=== PATIENT | female | born 1935 | race African-American/Black ===

== ENCOUNTER 2019-03-19 23:23 | Emergency (ER) | payer BC, MEDICAID ==
[~2019-03-19] VITALS: Ht 167.6 cm; Wt 81.0 kg
[~2019-03-19 23:23] MED LIST: DONE10TA11 PO; FELO10TA PO; MEMA10TA2 PO
[2019-03-20 00:36] LABS: CLARITY URINE TURBID (CLEAR); COLOR URINE YELLOW (YELLOW); KETONES URINE NEGATIVE (NEGATIVE); LEUKOCYTE ESTERASE URINE TRACE (NEGATIVE); NITRITE URINE NEGATIVE (NEGATIVE); OCCULT BLOOD URINE NEGATIVE (NEGATIVE); PH URINE >=9.0 (4.5-8.0); PROTEIN URINE TRACE (NEGATIVE); SPECIFIC GRAVITY URINE 1.019 (1.005-1.030); UROBILINOGEN URINE 0.2 E.U./dL (0.2-1.0)
[2019-03-20 01:31] LABS: HEMATOCRIT. 36.2 % (36.0-48.0); MEAN CORPUSCULAR HEMOGLOBIN 19.9 pg (28.0-32.0); MEAN CORPUSCULAR VOLUME 65.6 fL (81.0-99.0); MEAN PLATELET VOLUME 7.3 fl (7.4-10.4); PLATELET 362 x1000/uL (130-400); RED BLOOD CELL COUNT 5.52 mill/uL (4.2-5.4); RED CELL DISTRIBUTION WIDTH 19.2 % (11.6-14.6)
[2019-03-20 01:37] LABS: CHLORIDE 106 mEq/L (98-107)
[2019-03-20 01:38] LABS: PROTHROMBIN TIME 10.2 sec (9.6-11.0)
[2019-03-20] MEDS ORDERED: SODIUM CHLORIDE 0.9% 1000ML BAG (SEPSIS BOLUS) IV ONE (02:00)
[2019-03-20] MEDS ORDERED: CEFTRIAXONE 1 G PREMIX 50 ML IV ONE (02:00)
[2019-03-20 04:12] LABS: PLATELET ESTIMATE NORMAL
[2019-03-20 07:59] VITALS: BP 125/82
== END 2019-03-20 08:00 | disposition short-term general hospital (02) ==
LOC: ER 23:23 → CANBEDREQ 03-20 07:36 → ER 03-20 08:00
DX: A41.9 Sepsis, unspecified organism (principal); G30.9 Alzheimer's disease, unspecified; F02.80 Dementia in other diseases classified elsewhere, unspecified severity, without behavioral disturbance, psychotic disturbance, mood disturbance, and anxiety; I10 Essential (primary) hypertension; Z96.659 Presence of unspecified artificial knee joint
CPT/HCPCS: 36415; 70450; 71045; 74176; 80053; 81003; 82962; 83605; 83690; 84484; 85025; 85610; 87040; 87086; 93005; 96361; 96374; 99291; J0696; J7030

== ENCOUNTER 2019-08-30 09:34 | Inpatient (IN) | payer BC, MEDICAID ==
[~2019-08-30] VITALS: Ht 165.1 cm; Wt 54.4 kg
[~2019-08-30 09:34] MED LIST changes: -DONE10TA11 PO; -FELO10TA PO; +FELO10TA45 PO; -MEMA10TA2 PO; +OMEP20TA2 MT
[2019-08-30] MEDS ORDERED: SODIUM CHLORIDE 0.9% 1,000 ML IV ONE (09:52)
[2019-08-30] MEDS ORDERED: PANTOPRAZOLE SODIUM 40 MG/VIAL IV STA (09:52)
[2019-08-30 10:20] LABS: BASOPHILS % 0.4 % (0.0-2.0); HEMATOCRIT. 46.4 % (36.0-48.0); HEMOGLOBIN. 15.4 g/dL (12.0-16.0); LYMPHOCYTES % 7.3 % (20.0-50.0); MEAN CORPUSCULAR VOLUME 81.6 fL (81.0-99.0); MEAN PLATELET VOLUME 8.6 fl (7.4-10.4); MONOCYTES % 4.1 % (2.0-8.0); NEUTROPHILS % 88.2 % (40.0-76.0); PLATELET 297 x1000/uL (130-400); RED BLOOD CELL COUNT 5.69 mill/uL (4.2-5.4); RED CELL DISTRIBUTION WIDTH 19.6 % (11.6-14.6)
[2019-08-30 10:28] LABS: PROTHROMBIN TIME 10.4 sec (9.6-11.0)
[2019-08-30 10:30] LABS: CHLORIDE 108 mEq/L (98-107)
[2019-08-30 15:53] LABS: BASOPHILS % 0.1 % (0.0-2.0); HEMATOCRIT. 49.2 % (36.0-48.0); HEMOGLOBIN. 15.8 g/dL (12.0-16.0); LYMPHOCYTES % 7.7 % (20.0-50.0); MEAN CORPUSCULAR HEMOGLOBIN 26.7 pg (28.0-32.0); MEAN CORPUSCULAR VOLUME 83.2 fL (81.0-99.0); MEAN PLATELET VOLUME 8.6 fl (7.4-10.4); MONOCYTES % 5.5 % (2.0-8.0); NEUTROPHILS % 86.7 % (40.0-76.0); PLATELET 212 x1000/uL (130-400); RED BLOOD CELL COUNT 5.91 mill/uL (4.2-5.4); RED CELL DISTRIBUTION WIDTH 20.3 % (11.6-14.6)
[2019-08-30] MEDS ORDERED: IPRATROPIUM/ALBUTEROL 0.5-3(2.5)MG/3ML NEB HHN PRN (17:00)
[2019-08-30] MEDS ORDERED: ONDANSETRON HCL 4MG/2ML INJ IV PRN (17:00)
[2019-08-30] MEDS ORDERED: ACETAMINOPHEN 325MG TABLET PO PRN (17:00)
[2019-08-30] MEDS: SODIUM CHLORIDE 0.45% 1,000 ML IV SCH (18:19)
[2019-08-30 23:00] VITALS: BP 112/67
[2019-08-31 04:34] VITALS: BP 114/65
[2019-08-31] MEDS: SODIUM CHLORIDE 0.45% 1,000 ML IV SCH ×2 (06:31→21:13)
[2019-08-31 07:36] LABS: BASOPHILS % 0.1 % (0.0-2.0); EOSINOPHILS % 0.1 % (0.0-5.0); HEMATOCRIT. 40.5 % (36.0-48.0); LYMPHOCYTES % 8.1 % (20.0-50.0); MEAN CORPUSCULAR HEMOGLOBIN 26.6 pg (28.0-32.0); MEAN CORPUSCULAR VOLUME 82.5 fL (81.0-99.0); MONOCYTES % 5.5 % (2.0-8.0); NEUTROPHILS % 86.2 % (40.0-76.0); PLATELET 220 x1000/uL (130-400); RED BLOOD CELL COUNT 4.91 mill/uL (4.2-5.4); RED CELL DISTRIBUTION WIDTH 19.7 % (11.6-14.6)
[2019-08-31 07:37] LABS: CHLORIDE 114 mEq/L (98-107)
[2019-08-31 08:00] VITALS: BP 134/77
[2019-08-31] MEDS: PANTOPRAZOLE SODIUM 40 MG/VIAL IV SCH (09:04)
[2019-08-31] MEDS ORDERED: BISACODYL 10MG SUPP PR NR (10:25)
[2019-08-31] MEDS ORDERED: LACTULOSE 20G/30ML UDC PO NR (10:25)
[2019-08-31] MEDS: CEFTRIAXONE 1 G PREMIX 50 ML IV SCH (11:08)
[2019-08-31] MEDS: AZITHROMYCIN 500 MG TABLET PO SCH (11:08)
[2019-08-31 12:11] VITALS: BP 121/48
[2019-08-31 16:00] VITALS: BP 123/60
[2019-08-31] MEDS ORDERED: LACTULOSE 20G/30ML UDC PO PRN (17:45)
[2019-08-31] MEDS ORDERED: HYDROCODONE/ACETAMINOPHEN 5/325MG TABLET PO PRN (17:45)
[2019-08-31] MEDS ORDERED: MORPHINE SULFATE 2 MG/ML CPJ (NOT FOR IM USE) IV PRN (17:45)
[2019-08-31] MEDS: DOCUSATE SODIUM 100MG CAPSULE PO SCH (18:35)
[2019-08-31 20:48] VITALS: BP 134/62
[2019-09-01 00:39] VITALS: BP 129/66
[2019-09-01 04:00] VITALS: BP 131/74
[2019-09-01 07:36] LABS: HEMOGLOBIN 10.7 g/dL (12.0-16.0); MEAN CORPUSCULAR HEMOGLOBIN 26.9 pg (28.0-32.0); MEAN CORPUSCULAR VOLUME 83.1 fL (81.0-99.0); PLATELET 177 x1000/uL (130-400); RED BLOOD CELL COUNT 3.98 mill/uL (4.2-5.4); RED CELL DISTRIBUTION WIDTH 19.5 % (11.6-14.6)
[2019-09-01 07:49] LABS: CHLORIDE 111 mEq/L (98-107)
[2019-09-01 08:00] VITALS: BP 130/55
[2019-09-01] MEDS: DOCUSATE SODIUM 100MG CAPSULE PO SCH (09:37)
[2019-09-01] MEDS: AZITHROMYCIN 500 MG TABLET PO SCH (09:37)
[2019-09-01] MEDS: PANTOPRAZOLE SODIUM 40 MG/VIAL IV SCH ×2 (09:37→17:46)
[2019-09-01] MEDS: SODIUM CHLORIDE 0.45% 1,000 ML IV SCH (09:38)
[2019-09-01 12:00] VITALS: BP 133/53
[2019-09-01] MEDS: CEFTRIAXONE 1 G PREMIX 50 ML IV SCH (13:32)
[2019-09-01 16:00] VITALS: BP 135/60
[2019-09-01] MEDS ORDERED: BISACODYL 10MG SUPP PR PRN (16:30)
[2019-09-01] MEDS ORDERED: DIPHENHYDRAMINE 50MG/ML VIAL IV PRN (16:30)
[2019-09-01 17:42] LABS: BG BASE EXCESS 4.7 mmol/L (-2.0-2.0); BG CARBOXYHEMOGLOBIN 0.2 % (0.5-1.5); BG DEOXYHEMOGLOBIN 6.9 % (0.0-5.0); BG FRACTION INSPIRED OXYGEN 21; BG HCO3 ACT 29.1 mmol/L (22.0-26.0); BG METHEMOGLOBIN 0.6 % (0.0-1.5); BG OXYHEMOGLOBIN 92.3 % (94.0-97.0); BG PCO2 42.5 mmHg (35.0-45.0); BG PH 7.453 (7.350-7.450); BG PO2 72.3 mmHg (75.0-100.0); BG SAMPLE SITE RIGHT RADIAL; BG TOTAL HEMOGLOBIN 11.6 g/dL (12.0-18.0); BG VENT MODE ROOM AIR
[2019-09-01] MEDS: PIPERACILLIN/TAZOBACTAM 3.375 G in DEXT 5% WATER 100 ML IV SCH ×2 (19:04→23:42)
[2019-09-01] MEDS: IPRATROPIUM/ALBUTEROL 0.5-3(2.5)MG/3ML NEB HHN SCH (20:01)
[2019-09-01 20:49] VITALS: BP 152/63
[2019-09-02] VITALS (7 sets, daily range): BP systolic 98–167; BP diastolic 42–78
[2019-09-02] MEDS: SODIUM CHLORIDE 0.45% 1,000 ML IV SCH ×2 (00:25→12:45)
[2019-09-02] MEDS: IPRATROPIUM/ALBUTEROL 0.5-3(2.5)MG/3ML NEB HHN SCH ×3 (01:58→20:09)
[2019-09-02] MEDS: PIPERACILLIN/TAZOBACTAM 3.375 G in DEXT 5% WATER 100 ML IV SCH ×3 (05:42→17:49)
[2019-09-02 07:50] LABS: CHLORIDE 108 mEq/L (98-107)
[2019-09-02 08:02] LABS: BASOPHILS % 0.2 % (0.0-2.0); EOSINOPHILS % 3.4 % (0.0-5.0); HEMATOCRIT. 32.3 % (36.0-48.0); HEMOGLOBIN. 10.6 g/dL (12.0-16.0); LYMPHOCYTES % 8.4 % (20.0-50.0); MEAN CORPUSCULAR HEMOGLOBIN 27.2 pg (28.0-32.0); MEAN CORPUSCULAR VOLUME 82.6 fL (81.0-99.0); MONOCYTES % 8.7 % (2.0-8.0); NEUTROPHILS % 79.3 % (40.0-76.0); PLATELET 222 x1000/uL (130-400); RED BLOOD CELL COUNT 3.91 mill/uL (4.2-5.4); RED CELL DISTRIBUTION WIDTH 18.9 % (11.6-14.6)
[2019-09-02] MEDS: PANTOPRAZOLE SODIUM 40 MG/VIAL IV SCH ×2 (09:43→17:00)
[2019-09-02] MEDS: POTASSIUM CHLORIDE INJ 40 MEQ in DEXT 5% WATER 250 ML IV SCH ×2 (12:22→17:49)
[2019-09-02] MEDS ORDERED: FUROSEMIDE 40MG/4ML VIAL IVP SCH (12:30)
[2019-09-02] MEDS: BISACODYL 10MG SUPP PR SCH (17:45)
[2019-09-02] MEDS ORDERED: MINERAL OIL ENEMA 133ML PR NR (21:00)
[2019-09-03] VITALS: BP 112/64
[2019-09-03] MEDS: PIPERACILLIN/TAZOBACTAM 3.375 G in DEXT 5% WATER 100 ML IV SCH ×4 (01:08→17:53)
[2019-09-03] MEDS: IPRATROPIUM/ALBUTEROL 0.5-3(2.5)MG/3ML NEB HHN SCH ×3 (01:20→21:20)
[2019-09-03 04:00] VITALS: BP 109/63
[2019-09-03 04:48] VITALS: BP 109/63
[2019-09-03] MEDS ORDERED: LIDOCAINE HCL 1% 20ML VIAL (Pyxis) INJ ONE ×2 (07:14→13:45)
[2019-09-03] MEDS ORDERED: SODIUM BICARBONATE 4% (2.4MEQ) 5ML VIAL IV ONE ×2 (07:14→13:45)
[2019-09-03 08:00] VITALS: BP 111/51
[2019-09-03] MEDS: BISACODYL 10MG SUPP PR SCH ×2 (09:00→17:53)
[2019-09-03] MEDS: PANTOPRAZOLE SODIUM 40 MG/VIAL IV SCH ×2 (09:02→16:29)
[2019-09-03] MEDS: SODIUM CHLORIDE 0.45% 1,000 ML IV SCH (09:02)
[2019-09-03] MEDS ORDERED: SORBITOL 70% SOLN 30ML PO SCH (12:15)
[2019-09-03 16:00] VITALS: BP 119/44
[2019-09-03 18:37] LABS: BASOPHILS % 0.4 % (0.0-2.0); EOSINOPHILS % 5.6 % (0.0-5.0); HEMATOCRIT. 31.5 % (36.0-48.0); HEMOGLOBIN. 10.7 g/dL (12.0-16.0); LYMPHOCYTES % 10.7 % (20.0-50.0); MEAN CORPUSCULAR HEMOGLOBIN 27.7 pg (28.0-32.0); MEAN CORPUSCULAR VOLUME 81.4 fL (81.0-99.0); MEAN PLATELET VOLUME 8.4 fl (7.4-10.4); MONOCYTES % 9.1 % (2.0-8.0); NEUTROPHILS % 74.2 % (40.0-76.0); PLATELET 256 x1000/uL (130-400); RED BLOOD CELL COUNT 3.87 mill/uL (4.2-5.4); RED CELL DISTRIBUTION WIDTH 18.1 % (11.6-14.6)
[2019-09-03 18:44] LABS: CHLORIDE 109 mEq/L (98-107)
[2019-09-03 20:00] VITALS: BP 118/72
[2019-09-03] MEDS ORDERED: BISACODYL 10MG SUPP PR SCH (21:15)
[2019-09-03] MEDS ORDERED: POTASSIUM CHLORIDE INJ 40 MEQ in DEXT 5% WATER 250 ML IV NR (22:00)
[2019-09-03] MEDS ORDERED: MINERAL OIL ENEMA 133ML PR NR (22:00)
[2019-09-04] VITALS: BP 102/47
[2019-09-04] MEDS: PIPERACILLIN/TAZOBACTAM 3.375 G in DEXT 5% WATER 100 ML IV SCH ×4 (00:04→19:05)
[2019-09-04 04:00] VITALS: BP 111/59
[2019-09-04 08:01] VITALS: BP 106/64
[2019-09-04] MEDS: PANTOPRAZOLE SODIUM 40 MG/VIAL IV SCH ×2 (09:33→17:16)
[2019-09-04] MEDS: BISACODYL 10MG SUPP PR SCH (09:35)
[2019-09-04] MEDS: IPRATROPIUM/ALBUTEROL 0.5-3(2.5)MG/3ML NEB HHN SCH ×3 (09:40→20:41)
[2019-09-04 11:58] VITALS: BP 126/63
[2019-09-04 16:07] VITALS: BP 118/56
[2019-09-04 20:00] VITALS: BP 96/60
[2019-09-04] MEDS: LACTULOSE 20G/30ML UDC PO SCH (22:00)
[2019-09-05] VITALS: BP 118/67
[2019-09-05] MEDS: PIPERACILLIN/TAZOBACTAM 3.375 G in DEXT 5% WATER 100 ML IV SCH ×4 (00:13→17:13)
[2019-09-05 00:42] VITALS: BP 118/67
[2019-09-05] MEDS: IPRATROPIUM/ALBUTEROL 0.5-3(2.5)MG/3ML NEB HHN SCH ×5 (02:36→20:28)
[2019-09-05 04:00] VITALS: BP 111/73
[2019-09-05] MEDS: LACTULOSE 20G/30ML UDC PO SCH ×3 (05:13→22:00)
[2019-09-05 08:00] VITALS: BP 107/72
[2019-09-05] MEDS: PANTOPRAZOLE SODIUM 40 MG/VIAL IV SCH ×2 (08:52→17:13)
[2019-09-05] MEDS: BISACODYL 10MG SUPP PR SCH (10:29)
[2019-09-05 12:00] VITALS: BP 148/72
[2019-09-05 20:39] VITALS: BP 167/52
[2019-09-06 00:28] VITALS: BP 117/57
[2019-09-06] MEDS: PIPERACILLIN/TAZOBACTAM 3.375 G in DEXT 5% WATER 100 ML IV SCH ×5 (01:23→23:57)
[2019-09-06] MEDS: IPRATROPIUM/ALBUTEROL 0.5-3(2.5)MG/3ML NEB HHN SCH ×4 (02:15→19:58)
[2019-09-06 04:00] VITALS: BP 122/63
[2019-09-06] MEDS: LACTULOSE 20G/30ML UDC PO SCH ×3 (05:35→21:52)
[2019-09-06 06:16] LABS: BASOPHILS % 0.6 % (0.0-2.0); HEMATOCRIT. 28.3 % (36.0-48.0); HEMOGLOBIN. 9.6 g/dL (12.0-16.0); LYMPHOCYTES % 19.5 % (20.0-50.0); MEAN CORPUSCULAR HEMOGLOBIN 27.6 pg (28.0-32.0); MEAN CORPUSCULAR VOLUME 81.2 fL (81.0-99.0); MEAN PLATELET VOLUME 7.9 fl (7.4-10.4); MONOCYTES % 13.6 % (2.0-8.0); NEUTROPHILS % 57.3 % (40.0-76.0); PLATELET 295 x1000/uL (130-400); RED BLOOD CELL COUNT 3.49 mill/uL (4.2-5.4); RED CELL DISTRIBUTION WIDTH 18.4 % (11.6-14.6)
[2019-09-06 06:36] LABS: CHLORIDE 105 mEq/L (98-107)
[2019-09-06 08:00] VITALS: BP 116/85
[2019-09-06] MEDS: BISACODYL 10MG SUPP PR SCH (09:00)
[2019-09-06] MEDS: PANTOPRAZOLE SODIUM 40 MG/VIAL IV SCH ×2 (09:42→17:39)
[2019-09-06 12:00] VITALS: BP 133/46
[2019-09-06] MEDS ORDERED: POTASSIUM CHLORIDE 20MEQ TABLET SR PO NR (13:15)
[2019-09-06 16:00] VITALS: BP 130/47
[2019-09-06 20:19] VITALS: BP 151/49
[2019-09-07 00:06] VITALS: BP 123/47
[2019-09-07] MEDS: IPRATROPIUM/ALBUTEROL 0.5-3(2.5)MG/3ML NEB HHN SCH ×4 (01:59→19:59)
[2019-09-07 04:00] VITALS: BP 109/90
[2019-09-07] MEDS: PIPERACILLIN/TAZOBACTAM 3.375 G in DEXT 5% WATER 100 ML IV SCH ×3 (05:28→18:13)
[2019-09-07] MEDS: LACTULOSE 20G/30ML UDC PO SCH ×2 (05:29→13:05)
[2019-09-07 07:24] LABS: BASOPHILS % 0.6 % (0.0-2.0); EOSINOPHILS % 6.1 % (0.0-5.0); HEMATOCRIT. 31.1 % (36.0-48.0); HEMOGLOBIN. 10.5 g/dL (12.0-16.0); LYMPHOCYTES % 17.2 % (20.0-50.0); MEAN CORPUSCULAR HEMOGLOBIN 27.8 pg (28.0-32.0); MEAN CORPUSCULAR VOLUME 82.3 fL (81.0-99.0); MEAN PLATELET VOLUME 7.7 fl (7.4-10.4); MONOCYTES % 7.9 % (2.0-8.0); NEUTROPHILS % 68.2 % (40.0-76.0); PLATELET 325 x1000/uL (130-400); RED BLOOD CELL COUNT 3.78 mill/uL (4.2-5.4); RED CELL DISTRIBUTION WIDTH 18.3 % (11.6-14.6)
[2019-09-07 07:31] LABS: CHLORIDE 109 mEq/L (98-107)
[2019-09-07 08:00] VITALS: BP 149/52
[2019-09-07] MEDS ORDERED: POTASSIUM CHLORIDE INJ 50 MEQ in DEXT 5% WATER 500 ML IV ONE (09:00)
[2019-09-07] MEDS: BISACODYL 10MG SUPP PR SCH (09:00)
[2019-09-07] MEDS: PANTOPRAZOLE SODIUM 40 MG/VIAL IV SCH ×2 (10:05→18:13)
[2019-09-07 12:00] VITALS: BP 134/68
[2019-09-07] MEDS ORDERED: MORPHINE SULFATE 2 MG/ML CPJ (NOT FOR IM USE) IV PRN (15:45)
[2019-09-07] MEDS ORDERED: LORAZEPAM 2MG/ML CPJ IV PRN (15:45)
[2019-09-07 16:00] VITALS: BP 117/64
[2019-09-07 18:17] LABS: CHLORIDE 108 mEq/L (98-107)
[2019-09-07 20:45] VITALS: BP 96/46
[2019-09-08 00:33] VITALS: BP 96/49
[2019-09-08] MEDS: PIPERACILLIN/TAZOBACTAM 3.375 G in DEXT 5% WATER 100 ML IV SCH ×3 (00:44→12:42)
[2019-09-08] MEDS: IPRATROPIUM/ALBUTEROL 0.5-3(2.5)MG/3ML NEB HHN SCH (01:23)
[2019-09-08 04:41] VITALS: BP 117/84
[2019-09-08 08:00] VITALS: BP 128/78
[2019-09-08 09:11] LABS: HEMATOCRIT 30.4 % (36.0-48.0); MEAN CORPUSCULAR HEMOGLOBIN 27.1 pg (28.0-32.0); MEAN CORPUSCULAR VOLUME 82.2 fL (81.0-99.0); PLATELET 352 x1000/uL (130-400); RED CELL DISTRIBUTION WIDTH 18.5 % (11.6-14.6)
[2019-09-08 09:20] LABS: CHLORIDE 108 mEq/L (98-107)
[2019-09-08] MEDS: PANTOPRAZOLE SODIUM 40 MG/VIAL IV SCH ×2 (09:22→17:00)
[2019-09-08] MEDS: BISACODYL 10MG SUPP PR SCH (09:34)
[2019-09-08 12:08] VITALS: BP 142/63
[2019-09-08] MEDS ORDERED: DILTIAZEM HCL 30MG TABLET PO SCH (14:00)
[2019-09-08 16:00] VITALS: BP 126/57
[2019-09-08 20:00] VITALS: BP 134/97
== END 2019-09-08 20:40 | disposition hospice, home (50) | DRG 177 ==
LOC: ER 09:34 → 6WST 12:51 → EDBEDREQSVC 13:12 → EDBEDREQ 13:12 → EDBEDREQTM 13:12 → ENRESERV 21:31 → 6WST 08-31 00:01
PROVIDERS: ADMIT Ophthalmology; ATTEND Internal Medicine
PROC: 02HV33Z Insertion of Infusion Device into Superior Vena Cava, Percutaneous Approach (ICD-10-PCS; principal; 2019-09-03)
PROC: B5181ZA Fluoroscopy of Superior Vena Cava using Low Osmolar Contrast, Guidance (ICD-10-PCS; 2019-09-03)
PROC: B548ZZA Ultrasonography of Superior Vena Cava, Guidance (ICD-10-PCS; 2019-09-03)
DX: J69.0 Pneumonitis due to inhalation of food and vomit (principal); G92 Toxic encephalopathy; E72.20 Disorder of urea cycle metabolism, unspecified; G91.9 Hydrocephalus, unspecified; K92.0 Hematemesis; E44.1 Mild protein-calorie malnutrition; I10 Essential (primary) hypertension; K44.9 Diaphragmatic hernia without obstruction or gangrene; K56.41 Fecal impaction; Z96.653 Presence of artificial knee joint, bilateral; F02.80 Dementia in other diseases classified elsewhere, unspecified severity, without behavioral disturbance, psychotic disturbance, mood disturbance, and anxiety; K57.90 Diverticulosis of intestine, part unspecified, without perforation or abscess without bleeding; G30.9 Alzheimer's disease, unspecified; C50.912 Malignant neoplasm of unspecified site of left female breast; E87.6 Hypokalemia; J44.9 Chronic obstructive pulmonary disease, unspecified; D50.9 Iron deficiency anemia, unspecified; R13.10 Dysphagia, unspecified; R47.02 Dysphasia; R62.7 Adult failure to thrive; D72.829 Elevated white blood cell count, unspecified; Z90.13 Acquired absence of bilateral breasts and nipples; Z85.3 Personal history of malignant neoplasm of breast; Z68.20 Body mass index [BMI] 20.0-20.9, adult; Z74.01 Bed confinement status; Z87.19 Personal history of other diseases of the digestive system; Z79.899 Other long term (current) drug therapy
CPT/HCPCS: 36415; 36573; 36600; 70551; 71045; 74018; 74176; 76937; 80048; 80053; 82140; 82270; 82375; 82805; 83735; 85025; 85027; 86850; 86900; 92610; 93005; 93306; 94640; 97161; 99285; C1725; C9113; J0696; J2543; J3480; J3490; J7030; J7060

== ENCOUNTER 2019-11-16 20:26 | Inpatient (IN) | payer BC, MEDICAID ==
[~2019-11-16] VITALS: Ht 162.6 cm; Wt 57.2 kg
[2019-11-16 22:29] LABS: CLARITY URINE TURBID (CLEAR); COLOR URINE DARK YELLOW (YELLOW); KETONES URINE TRACE (NEGATIVE); LEUKOCYTE ESTERASE URINE 1+ (NEGATIVE); NITRITE URINE NEGATIVE (NEGATIVE); OCCULT BLOOD URINE 2+ (NEGATIVE); PROTEIN URINE TRACE (NEGATIVE); SPECIFIC GRAVITY URINE 1.027 (1.005-1.030)
[2019-11-17 00:47] LABS: CHLORIDE 108 mEq/L (98-107)
[2019-11-17 01:09] LABS: PROTHROMBIN TIME 10.7 sec (9.6-11.0)
[2019-11-17] MEDS ORDERED: LEVOFLOXACIN 750MG PREMIX 150 ML IV ONE (01:30)
[2019-11-17 04:30] VITALS: BP 112/66
[2019-11-17 05:00] VITALS: BP 120/68
[2019-11-17] MEDS ORDERED: PIPERACILLIN/TAZOBACTAM 3.375 G/VIAL IV SCH (06:00)
[2019-11-17] MEDS ORDERED: AZITHROMYCIN 500 MG in DEXT 5% WATER 250 ML IV SCH (07:00)
[2019-11-17 08:00] VITALS: BP 140/55
[2019-11-17] MEDS: PIPERACILLIN/TAZOBACTAM 3.375 G in DEXT 5% WATER 100 ML IV SCH ×3 (08:34→19:06)
[2019-11-17] MEDS: DEXT 5%/0.45% NACL KCL 20MEQ/L 1,000 ML IV SCH ×3 (08:34→19:06)
[2019-11-17] MEDS: PANTOPRAZOLE SODIUM 40 MG/VIAL IV SCH (08:35)
[2019-11-17] MEDS ORDERED: HEPARIN 5000 UNITS/ML VIAL SUBCUT SCH (09:00)
[2019-11-17 09:07] LABS: BG BASE EXCESS -0.1 mmol/L (-2.0-2.0); BG CARBOXYHEMOGLOBIN 0.7 % (0.5-1.5); BG DEOXYHEMOGLOBIN 10.8 % (0.0-5.0); BG FRACTION INSPIRED OXYGEN 21; BG HCO3 ACT 23.9 mmol/L (22.0-26.0); BG METHEMOGLOBIN 0.3 % (0.0-1.5); BG OXYGEN SATURATION 89.1 % (92.0-98.5); BG OXYHEMOGLOBIN 88.2 % (94.0-97.0); BG PCO2 37.3 mmHg (35.0-45.0); BG PH 7.425 (7.350-7.450); BG PO2 54.8 mmHg (75.0-100.0); BG SAMPLE SITE RIGHT RADIAL; BG TOTAL HEMOGLOBIN 15.4 g/dL (12.0-18.0); BG VENT MODE ROOM AIR
[2019-11-17 09:44] LABS: HEMATOCRIT. 46.5 % (36.0-48.0); HEMOGLOBIN. 15.3 g/dL (12.0-16.0); MEAN CORPUSCULAR HEMOGLOBIN 29.7 pg (28.0-32.0); MEAN CORPUSCULAR VOLUME 90.2 fL (81.0-99.0); MEAN PLATELET VOLUME 9.1 fl (7.4-10.4); PLATELET 183 x1000/uL (130-400); RED BLOOD CELL COUNT 5.15 mill/uL (4.2-5.4); RED CELL DISTRIBUTION WIDTH 15.6 % (11.6-14.6)
[2019-11-17 09:47] LABS: CHLORIDE 109 mEq/L (98-107)
[2019-11-17 12:00] VITALS: BP 101/62
[2019-11-17] MEDS ORDERED: DIPHENHYDRAMINE 50MG/ML VIAL IV PRN (13:45)
[2019-11-17] MEDS ORDERED: LACTULOSE 20G/30ML UDC PO PRN (13:45)
[2019-11-17] MEDS ORDERED: IPRATROPIUM/ALBUTEROL 0.5-3(2.5)MG/3ML NEB HHN PRN (13:45)
[2019-11-17] MEDS ORDERED: ACETAMINOPHEN 650MG SUPP PR PRN (13:45)
[2019-11-17 14:02] LABS: PLATELET ESTIMATE NORMAL
[2019-11-17 16:05] VITALS: BP 137/75
[2019-11-17] MEDS ORDERED: VANCOMYCIN 750 MG PREMIX 150 ML IV SCH (17:00)
[2019-11-17 17:44] LABS: HEMOGLOBIN 13.6 g/dL (12.0-16.0)
[2019-11-17 18:36] LABS: TOTAL IRON BINDING CAPACITY 428 ug/dL (250-450)
[2019-11-17 20:00] VITALS: BP 116/59
[2019-11-18] VITALS: BP 116/61
[2019-11-18 04:00] VITALS: BP 114/49
[2019-11-18] MEDS: PIPERACILLIN/TAZOBACTAM 3.375 G in DEXT 5% WATER 100 ML IV SCH ×3 (06:09→22:23)
[2019-11-18 06:31] LABS: CHLORIDE 109 mEq/L (98-107)
[2019-11-18 06:36] LABS: BASOPHILS % 0.2 % (0.0-2.0); HEMATOCRIT. 36.7 % (36.0-48.0); MEAN CORPUSCULAR HEMOGLOBIN 29.2 pg (28.0-32.0); MEAN CORPUSCULAR VOLUME 89.5 fL (81.0-99.0); MEAN PLATELET VOLUME 9.4 fl (7.4-10.4); MONOCYTES % 1.9 % (2.0-8.0); NEUTROPHILS % 87.9 % (40.0-76.0); PLATELET 161 x1000/uL (130-400); RED CELL DISTRIBUTION WIDTH 15.3 % (11.6-14.6)
[2019-11-18 07:50] LABS: BG CARBOXYHEMOGLOBIN 0.3 % (0.5-1.5); BG DEOXYHEMOGLOBIN 4.7 % (0.0-5.0); BG FRACTION INSPIRED OXYGEN 32; BG HCO3 ACT 24.2 mmol/L (22.0-26.0); BG METHEMOGLOBIN 0.2 % (0.0-1.5); BG OXYGEN SATURATION 95.3 % (92.0-98.5); BG OXYHEMOGLOBIN 94.8 % (94.0-97.0); BG PCO2 38.2 mmHg (35.0-45.0); BG PO2 74.7 mmHg (75.0-100.0); BG SAMPLE SITE RIGHT BRACHIAL; BG TOTAL HEMOGLOBIN 13.4 g/dL (12.0-18.0); BG VENT MODE NASAL CANNULA
[2019-11-18 08:00] VITALS: BP 108/54
[2019-11-18] MEDS: PANTOPRAZOLE SODIUM 40 MG/VIAL IV SCH (08:51)
[2019-11-18] MEDS: DEXT 5%/0.45% NACL KCL 20MEQ/L 1,000 ML IV SCH ×2 (11:47→22:23)
[2019-11-18 12:00] VITALS: BP 129/67
[2019-11-18 16:00] VITALS: BP 131/65
[2019-11-18 20:00] VITALS: BP 113/55
[2019-11-19 04:00] VITALS: BP 132/67
[2019-11-19] MEDS: PIPERACILLIN/TAZOBACTAM 3.375 G in DEXT 5% WATER 100 ML IV SCH ×3 (06:22→20:14)
[2019-11-19 07:56] VITALS: BP 129/58
[2019-11-19] MEDS ORDERED: CEFAZOLIN 1000MG PREMIX 50 ML IV SCH (10:00)
[2019-11-19] MEDS: PANTOPRAZOLE SODIUM 40 MG/VIAL IV SCH (10:04)
[2019-11-19] MEDS: DEXT 5%/0.45% NACL KCL 20MEQ/L 1,000 ML IV SCH ×2 (10:05→19:00)
[2019-11-19 12:00] VITALS: BP 126/89
[2019-11-19 12:50] VITALS: BP 126/89
[2019-11-19 12:50] LABS: HEMATOCRIT. 37.7 % (36.0-48.0); HEMOGLOBIN. 12.3 g/dL (12.0-16.0); MEAN CORPUSCULAR HEMOGLOBIN 29.1 pg (28.0-32.0); MEAN CORPUSCULAR VOLUME 88.9 fL (81.0-99.0); MEAN PLATELET VOLUME 9.1 fl (7.4-10.4); PLATELET 179 x1000/uL (130-400); RED BLOOD CELL COUNT 4.25 mill/uL (4.2-5.4); RED CELL DISTRIBUTION WIDTH 15.3 % (11.6-14.6)
[2019-11-19 12:58] LABS: CHLORIDE 108 mEq/L (98-107)
[2019-11-19] MEDS ORDERED: FENTANYL CITRATE/PF 50MCG/ML 2ML VIAL ONE (13:01)
[2019-11-19] MEDS ORDERED: MIDAZOLAM HCL 5 MG/5 ML VIAL ONE (13:01)
[2019-11-19] MEDS ORDERED: MIDAZOLAM HCL 5 MG/5 ML VIAL IV PRN (13:06)
[2019-11-19] MEDS ORDERED: CLONIDINE 0.1MG TABLET PO PRN (13:15)
[2019-11-19] MEDS ORDERED: BISACODYL 10MG SUPP PR PRN (13:15)
[2019-11-19] MEDS ORDERED: IPRATROPIUM/ALBUTEROL 0.5-3(2.5)MG/3ML NEB HHN PRN (13:15)
[2019-11-19] MEDS ORDERED: HYDROCODONE/ACETAMINOPHEN 5/325MG TABLET PO PRN (13:15)
[2019-11-19 13:45] LABS: PLATELET ESTIMATE NORMAL
[2019-11-19 16:00] VITALS: BP 127/87
[2019-11-19 20:00] VITALS: BP 140/77
[2019-11-20] VITALS: BP 123/63
[2019-11-20 04:00] VITALS: BP 139/65
[2019-11-20] MEDS: PIPERACILLIN/TAZOBACTAM 3.375 G in DEXT 5% WATER 100 ML IV SCH ×3 (04:23→21:26)
[2019-11-20] MEDS: DEXT 5%/0.45% NACL KCL 20MEQ/L 1,000 ML IV SCH (04:23)
[2019-11-20 06:47] LABS: HEMATOCRIT. 35.1 % (36.0-48.0); HEMOGLOBIN. 11.6 g/dL (12.0-16.0); MEAN CORPUSCULAR HEMOGLOBIN 28.7 pg (28.0-32.0); MEAN CORPUSCULAR VOLUME 86.7 fL (81.0-99.0); PLATELET 201 x1000/uL (130-400); RED BLOOD CELL COUNT 4.05 mill/uL (4.2-5.4); RED CELL DISTRIBUTION WIDTH 15.4 % (11.6-14.6)
[2019-11-20 07:02] LABS: CHLORIDE 107 mEq/L (98-107)
[2019-11-20 08:00] VITALS: BP 138/77
[2019-11-20] MEDS: FERROUS SULFATE 325MG TABLET PO SCH ×3 (08:31→18:02)
[2019-11-20] MEDS: PANTOPRAZOLE SODIUM 40 MG/VIAL IV SCH (08:31)
[2019-11-20 11:35] LABS: PLATELET ESTIMATE NORMAL
[2019-11-20 12:00] VITALS: BP 124/62
[2019-11-20 16:00] VITALS: BP 135/66
[2019-11-20 20:00] VITALS: BP 148/72
[2019-11-21] VITALS: BP 100/51
[2019-11-21 04:00] VITALS: BP 118/62
[2019-11-21 06:06] LABS: BASOPHILS % 0.3 % (0.0-2.0); EOSINOPHILS % 3.2 % (0.0-5.0); HEMATOCRIT. 30.9 % (36.0-48.0); HEMOGLOBIN. 10.5 g/dL (12.0-16.0); MEAN CORPUSCULAR HEMOGLOBIN 29.5 pg (28.0-32.0); MEAN CORPUSCULAR VOLUME 86.8 fL (81.0-99.0); MEAN PLATELET VOLUME 8.8 fl (7.4-10.4); MONOCYTES % 12.2 % (2.0-8.0); NEUTROPHILS % 74.3 % (40.0-76.0); PLATELET 197 x1000/uL (130-400); RED BLOOD CELL COUNT 3.56 mill/uL (4.2-5.4); RED CELL DISTRIBUTION WIDTH 15.1 % (11.6-14.6)
[2019-11-21 06:19] LABS: CHLORIDE 108 mEq/L (98-107)
[2019-11-21] MEDS: PIPERACILLIN/TAZOBACTAM 3.375 G in DEXT 5% WATER 100 ML IV SCH ×3 (06:30→21:42)
[2019-11-21 08:00] VITALS: BP 121/52
[2019-11-21] MEDS: PANTOPRAZOLE SODIUM 40 MG/VIAL IV SCH (08:48)
[2019-11-21] MEDS: FERROUS SULFATE 325MG TABLET PO SCH ×3 (08:49→16:45)
[2019-11-21 12:00] VITALS: BP 120/54
[2019-11-21] MEDS ORDERED: POTASSIUM CHLORIDE 20MEQ TABLET SR PO NR (12:45)
[2019-11-21 16:00] VITALS: BP 112/64
[2019-11-21 20:00] VITALS: BP 174/93
[2019-11-22] VITALS (7 sets, daily range): BP systolic 100–125; BP diastolic 51–62
[2019-11-22] MEDS: PIPERACILLIN/TAZOBACTAM 3.375 G in DEXT 5% WATER 100 ML IV SCH (06:38)
[2019-11-22 07:10] LABS: HEMATOCRIT. 29.9 % (36.0-48.0); HEMOGLOBIN. 9.9 g/dL (12.0-16.0); MEAN CORPUSCULAR HEMOGLOBIN 28.5 pg (28.0-32.0); MEAN CORPUSCULAR VOLUME 86.4 fL (81.0-99.0); MEAN PLATELET VOLUME 8.1 fl (7.4-10.4); PLATELET 240 x1000/uL (130-400); RED BLOOD CELL COUNT 3.46 mill/uL (4.2-5.4); RED CELL DISTRIBUTION WIDTH 15.5 % (11.6-14.6)
[2019-11-22 07:41] LABS: CHLORIDE 106 mEq/L (98-107)
[2019-11-22] MEDS: PANTOPRAZOLE SODIUM 40 MG/VIAL IV SCH (09:52)
[2019-11-22] MEDS: FERROUS SULFATE 325MG TABLET PO SCH ×3 (09:52→18:01)
[2019-11-22] MEDS ORDERED: AMOX250S70 GT (13:57)
[2019-11-22] MEDS ORDERED: METR500T GT (13:57)
[2019-11-22 16:12] LABS: PLATELET ESTIMATE NORMAL
[2019-11-22] MEDS: ACETAMINOPHEN 325MG TABLET PO PRN (17:05)
[2019-11-23 00:37] VITALS: BP 127/65
[2019-11-23 04:00] VITALS: BP 111/51
[2019-11-23 08:00] VITALS: BP 94/45
[2019-11-23] MEDS: FERROUS SULFATE 325MG TABLET PO SCH ×3 (10:14→17:27)
[2019-11-23] MEDS: PANTOPRAZOLE SODIUM 40 MG/VIAL IV SCH (10:14)
[2019-11-23] MEDS: SODIUM CHLORIDE 0.45% 1,000 ML IV SCH (11:46)
[2019-11-23 12:00] VITALS: BP 126/54
[2019-11-23 16:00] VITALS: BP 118/68
[2019-11-23 20:00] VITALS: BP 142/82
[2019-11-24] VITALS: BP 143/77
[2019-11-24 08:00] VITALS: BP 109/68
[2019-11-24] MEDS: SODIUM CHLORIDE 0.45% 1,000 ML IV SCH (11:11)
[2019-11-24] MEDS: PANTOPRAZOLE SODIUM 40 MG/VIAL IV SCH (11:18)
[2019-11-24] MEDS: FERROUS SULFATE 325MG TABLET PO SCH ×3 (11:18→18:20)
[2019-11-24 12:00] VITALS: BP 112/66
[2019-11-24 16:00] VITALS: BP 116/68
[2019-11-25] MEDS: ACETAMINOPHEN 325MG TABLET PO PRN (06:17)
[2019-11-25 08:00] VITALS: BP 130/69
[2019-11-25] MEDS: FERROUS SULFATE 325MG TABLET PO SCH ×3 (11:10→17:29)
[2019-11-25] MEDS: PANTOPRAZOLE SODIUM 40 MG/VIAL IV SCH (11:10)
[2019-11-25 12:00] VITALS: BP 125/71
[2019-11-25 16:00] VITALS: BP 130/60
[2019-11-25] MEDS: SODIUM CHLORIDE 0.45% 1,000 ML IV SCH ×2 (17:29→17:30)
[2019-11-25] MEDS: LACTULOSE 20G/30ML UDC PO SCH ×2 (17:29→21:01)
[2019-11-25 20:00] VITALS: BP 140/49
[2019-11-26] VITALS: BP 125/69
[2019-11-26 04:00] VITALS: BP 131/68
[2019-11-26] MEDS: SODIUM CHLORIDE 0.45% 1,000 ML IV SCH (05:49)
[2019-11-26] MEDS: LACTULOSE 20G/30ML UDC PO SCH (05:53)
[2019-11-26 08:00] VITALS: BP 125/62
[2019-11-26] MEDS: FERROUS SULFATE 325MG TABLET PO SCH (08:56)
[2019-11-26] MEDS: PANTOPRAZOLE SODIUM 40 MG/VIAL IV SCH (08:56)
[2019-11-26 10:17] VITALS: BP 125/62
== END 2019-11-26 12:10 | disposition hospice, home (50) | DRG 871 ==
LOC: ER 20:26 → EDBEDREQTM 23:45 → EDBEDREQ 23:45 → 7EST 23:50 → ENRESERV 11-17 00:33 → 6WST 11-18 09:32
PROVIDERS: ADMIT Ophthalmology; ATTEND Ophthalmology
PROC: 0DH63UZ Insertion of Feeding Device into Stomach, Percutaneous Approach (ICD-10-PCS; principal; 2019-11-19)
DX: A41.9 Sepsis, unspecified organism (principal); J69.0 Pneumonitis due to inhalation of food and vomit; K57.91 Diverticulosis of intestine, part unspecified, without perforation or abscess with bleeding; N39.0 Urinary tract infection, site not specified; E46 Unspecified protein-calorie malnutrition; E87.2 Acidosis; G93.49 Other encephalopathy; F02.80 Dementia in other diseases classified elsewhere, unspecified severity, without behavioral disturbance, psychotic disturbance, mood disturbance, and anxiety; E86.0 Dehydration; G30.9 Alzheimer's disease, unspecified; K44.9 Diaphragmatic hernia without obstruction or gangrene; D64.9 Anemia, unspecified; R13.10 Dysphagia, unspecified; Z96.653 Presence of artificial knee joint, bilateral; R62.7 Adult failure to thrive; G93.89 Other specified disorders of brain; E88.09 Other disorders of plasma-protein metabolism, not elsewhere classified; K59.09 Other constipation; Z20.828 Contact with and (suspected) exposure to other viral communicable diseases; R09.02 Hypoxemia; Z79.899 Other long term (current) drug therapy; Z90.12 Acquired absence of left breast and nipple; Z85.3 Personal history of malignant neoplasm of breast; Z68.21 Body mass index [BMI] 21.0-21.9, adult
CPT/HCPCS: 36415; 36600; 71045; 80048; 80053; 81003; 82140; 82375; 82728; 82805; 82962; 83540; 83550; 83605; 83615; 83880; 84145; 84484; 85014; 85018; 85025; 85379; 86850; 86900; 87420; 87635; 87804; 93005; 99291; C9113; J0456; J0690; J1644; J1956; J2250; J2543; J3010; J3370; J7060